=== PATIENT | female | born 1955 | race Caucasian/White ===

== ENCOUNTER 2024-07-17 19:18 | Emergency (ER) | payer BC, OTHER ==
[~2024-07-17] VITALS: Ht 154.9 cm; Wt 73.5 kg
[2024-07-17 19:20] VITALS: BP 154/103; PULSE 115; RESP 18; TEMP 98.7; O2SAT 99
[2024-07-17 19:41] VITALS: O2SAT 99
[2024-07-17 20:19] LABS: BASOPHILS % (AUTO) 0.5 % (0.0-2.0); EOSINOPHILS # (AUTO) 0.1 K/uL (0-0.4); EOSINOPHILS % (AUTO) 0.7 % (0.0-4.0); HEMATOCRIT 35.6 % (36-48); HEMOGLOBIN 11.9 g/dL (12.0-16.0); LYMPHOCYTES # (AUTO) 0.7 K/uL (2.5-16.5); MEAN CORPUSCULAR HEMOGLOBIN 27 pg (27-31); MEAN CORPUSCULAR HGB CONC 33 g/dL (33-37); MEAN CORPUSCULAR VOLUME 82.3 fL (80-94); MONOCYTES # (AUTO) 0.5 K/uL (0.8-1.0); MONOCYTES % (AUTO) 5.6 % (1.7-9.3); NEUTROPHILS # (AUTO) 7.3 K/uL (1.8-7.7); NEUTROPHILS % (AUTO) 84.6 % (42.2-75.2); PLATELET COUNT (AUTO) 179 K/uL (140-450); RED BLOOD CELL COUNT(AUTO) 4.32 MIL/uL (4.20-5.40); RED CELL DISTRIBUTION WIDTH 14.3 % (11.6-13.7); WHITE BLOOD COUNT (AUTO) 8.6 K/uL (4.8-10.8)
[2024-07-17] MEDS: NACL 0.9% 1,000 ML IV ONE (20:22)
[2024-07-17 20:25] LABS: LYMPHOCYTES % (AUTO) 8.6 % (20.5-51.1)
[2024-07-17 20:37] LABS: ANION GAP 15.8 (8-16); CALCIUM 9.2 mg/dL (8.5-10.1); CARBON DIOXIDE 22.4 mmol/L (21-32); CREATININE 1.2 mg/dL (0.6-1.3); POTASSIUM 3.2 mmol/L (3.5-5.1)
[2024-07-17 20:38] LABS: INR 1.05 (0.8-1.2)
[2024-07-17 20:42] LABS: ALBUMIN 3.5 g/dL (3.4-5.0); BILIRUBIN,DIRECT 0.2 mg/dL (0.0-0.3); TOTAL BILIRUBIN 0.7 mg/dL (0.0-1.0); TOTAL PROTEIN, SERUM 7.9 g/dL (6.4-8.2)
[2024-07-17 22:09] VITALS: BP 134/91; PULSE 111; RESP 18; TEMP 98.2; O2SAT 95
== END 2024-07-17 22:10 | disposition left against medical advice (07) ==
LOC: MED 19:18
DX: D68.9 Coagulation defect, unspecified (principal); K59.00 Constipation, unspecified; R30.0 Dysuria; R30.9 Painful micturition, unspecified; M79.671 Pain in right foot; I10 Essential (primary) hypertension
CPT/HCPCS: 36415; 73630; 80048; 80076; 83690; 85025; 85610; 96360; 99284; J7030; Q0092